=== PATIENT | female | born 1955 | race Caucasian/White ===

== ENCOUNTER 2016-10-01 18:03 | Emergency (ER) | payer BC ==
[~2016-10-01] VITALS: Ht 170.2 cm; Wt 84.8 kg
[2016-10-01 18:23] VITALS: BP 141/83; PULSE 88; RESP 16; TEMP 98.2; O2SAT 98
[2016-10-01] MEDS ORDERED: ASPI81CH CHEW (18:36)
--- NOTE | 2016-10-01 19:15 | PD ---
HPI Chief Complaint: Eye Problems/Injury Time Seen by Provider: 19:13 Travel History International Travel<30 days: No Contact w/Intl Traveler<30days: No Traveled to known affect area: No History of Present Illness HPI Patient 59-year-old female who's grandchildren were playing with a dog toy swinging around hitting each other with it when she was struck in the right eye. This event happened approximately 1630 this afternoon. Patient states she 's had fairly abrupt loss of vision in the right eye since then. Patient states she sees white but is able to make out lights and some shadows. Patient denies any loss consciousness headaches focalized weakness. Patient is a contact wearer and states she's removed contact from her right eye. [facility] Past Medical History Medical History: Denies Significant Hx Diminished Hearing: No Tetanus Vaccination: > 5 Years Influenza Vaccination: No ?: Not Past Surgical History Surgical History: No Previous Surgery Social History Alcohol Use: No Tobacco Use: No Substance Use: No Allergies-Medications (Allergen,Severity, Reaction): Coded Allergies: No Known Allergies (Unverified , 10/01/16) Reported Meds & Prescriptions Reported Meds & Active Scripts Active Reported Aspirin 81 Mg Chew 81 Mg CHEW DAILY Review of Systems Except as stated in HPI: all other systems reviewed are Neg Physical Exam Narrative GENERAL: Well-nourished, well-developed patient. SKIN: Focused skin assessment warm/dry. HEAD: Normocephalic. Patient has periorbital ecchymosis particularly on the upper eyelid on the right. No wynne signs. No lacerations or abrasions, no bony tenderness. EYES: No scleral icterus. Patient has a hyphema on the right side and loss of the red reflex on the right. There is no scleral injection. Fluorescein staining shows no uptake. Patient's pupils are round but unequal, 8 mm on the right and 4 mm on the left. The right pupil is very sluggish to respond. He does constrict with light in the left eye. There is no true afferent pupillary defect. Greg-Pen shows 27 on the left 29 on the right. This is an older machine I doubt its accuracy. Extraocular movements are intact and nontender, NECK: Supple, trachea midline. No JVD or lymphadenopathy. CARDIOVASCULAR: Regular rate and rhythm without murmurs, gallops, or rubs. RESPIRATORY: Breath sounds equal bilaterally. No accessory muscle use. GASTROINTESTINAL: Abdomen soft, non-tender, nondistended. MUSCULOSKELETAL: No cyanosis, or edema. BACK: Nontender without obvious deformity. No CVA tenderness. Data Data Last Documented VS Vital Signs Date Time Temp Pulse Resp B/P Pulse Ox O2 Delivery O2 Flow Rate FiO2 10/01/16 20:41 87 16 146/91 97 Room Air 10/01/16 18:23 98.2 Orders Ed Poc Ultrasound (10/01/16 ) Ct Brain W/O Iv Contrast(Rout) (10/01/16 19:17) Ct Facial Bones W/O Iv Cont (10/01/16 19:17) Proparacaine 0.5% Opth Soln (Alcaine 0.5 (10/01/16 19:30) Atropine 1% Opth Soln (Atropine 1% Opth (10/01/16 19:45) Prednisol Acet 1% Opth Susp (Pred Forte (10/01/16 19:45) MDM Medical Decision Making Medical Screen Exam Complete: Yes Emergency Medical Condition: Yes Differential Diagnosis Hyphema, traumatic retinal detachment, intravitreal hemorrhage, retrobulbar hematoma unlikely but needs consideration, intracranial abnormality unlikely but needs consideration.. Narrative Course Patient 61-year-old female presents with hyphema, loss of the red reflex in the right eye and equal pupils in the setting focalized trauma to the right eye. No evidence of open globe. Patient's CT head and max face are negative. Patient was discussed at length Dr. Frye who recommends atropine 1% 4 times tonight and then 4 times a day after that and Pred forte 1% 4 times tonight and then 4 times a day after that. He would like to see the patient at 8:00 in the morning his [place] office. The patient is been provided these drops in the emergency department. Discussed to avoid wearing her contacts. She is stable for discharge at this time. Procedures Procedure Narrative Bedside ultrasound of the right eye shows no obvious evidence of lens detachment nor retinal detachment. Diagnosis Primary Impression: Hyphema Qualified Code: H21.01 - Hyphema, right Referrals: Eduardo Irizarry MD Additional Instructions: Call Dr. Irizarry' Office in [place] at 0730 tomorrow. He starts seeing patients at 0800 and can see you tomorrow. Use both eye drops one drop every hour for the next 4 hours, then one drop 4 times daily after that. Try to sleep sitting up tonight. Please do not delay getting to Dr. Irizarry or another core worker tomorrow. Disposition: 01 DISCHARGE HOME Condition: Curt Khanna MD Oct 01, 2016 19:15
[2016-10-01] MEDS ORDERED: PROPARACAINE HCL 0.5% OPHT SOLN 15 ML BTL EACH EYE ONE (19:30)
[2016-10-01] MEDS ORDERED: prednisoLONE ACETATE 1% OPHT SUSP 5 ML BTL RIGHT EYE ONE (19:45)
[2016-10-01] MEDS ORDERED: ATROPINE SULFATE 1% OPHT SOLN 2 ML BTL RIGHT EYE ONE (19:45)
--- NOTE | 2016-10-01 20:26 | RADHPO ---
EXAM DATE/TIME: 10/01/2016 19:56 [facility] COMPARISON: No previous studies available for comparison. INDICATIONS : Trauma. Right orbit bruising. RADIATION DOSE: 60.33 CTDIvol (mGy) MEDICAL HISTORY : None SURGICAL HISTORY : None. ENCOUNTER: Initial ACUITY: 1 day PAIN SCALE: 5/10 LOCATION: Right frontal TECHNIQUE: Multiple contiguous axial images were obtained of the head. Using automated exposure control and adj ustment of the mA and/or kV according to patient size, radiation dose was kept as low as reasonably a chievable to obtain optimal diagnostic quality images. FINDINGS: CEREBRUM: The ventricles are normal for age. No evidence of midline shift, mass lesion, hemorrhage or acute in farction. No extra-axial fluid collections are seen. POSTERIOR FOSSA: The cerebellum and brainstem are intact. The 4th ventricle is midline. The cerebellopontine angle i s unremarkable. EXTRACRANIAL: Mild right eyelid swelling. The visualized portion of the orbits is intact. SKULL: The calvaria is intact. No evidence of skull fracture. CONCLUSION: Negative noncontrast CT brain. Solomon Hu MD on October 01, 2016 at 20:23 Board Certified Radiologist. This report was verified electronically.
[2016-10-01 20:41] VITALS: BP 146/91; PULSE 87; RESP 16; O2SAT 97
--- NOTE | 2016-10-01 21:04 | RADHPO ---
EXAM DATE/TIME: 10/01/2016 19:56 [facility] COMPARISON: No previous studies available for comparison. INDICATIONS : Trauma. Retrobulbar hematoma. RADIATION DOSE: 34.85 CTDIvol (mGy) MEDICAL HISTORY : None SURGICAL HISTORY : None. ENCOUNTER: Initial ACUITY: 1 day PAIN SCORE: 5/10 LOCATION: Right orbit TECHNIQUE: Volumetric scanning of the facial bones was performed. Using automated exposure control and adjustme nt of the mA and/or kV according to patient size, radiation dose was kept as low as reasonably achiev able to obtain optimal diagnostic quality images. FINDINGS: There is mild right eyelid swelling. No swelling seen in the retroseptal region. The extraocular mu scles and optic nerve and orbital globes have symmetrical appearance between left and right side. Th e bony orbit is grossly intact. The nasal bones, zygomatic arches, maxilla, and mandible are grossly intact. Pterygoid plates are symmetric in appearance. There is focal mucosal thickening in the inf erior right maxillary and posterior lateral left maxillary sinuses. Left frontal sinus is atrophic. CONCLUSION: 1. Right eyelid swelling. No retroseptal abnormalities in the right orbit. 2. No facial bone fractures seen. 3. Bilateral maxillary sinus disease. Solomon Hu MD on October 01, 2016 at 21:01 Board Certified Radiologist. This report was verified electronically.
== END 2016-10-01 21:24 | disposition home or self-care (01) ==
LOC: EDBD → PHEFT 18:03
DX: H21.01 Hyphema, right eye (principal)
CPT/HCPCS: 70450; 70486